=== PATIENT | female | born 1985 | race Caucasian/White ===

== ENCOUNTER 2016-08-16 22:54 | Emergency (ER) | payer MEDICAID ==
[~2016-08-16] VITALS: Ht 172.7 cm; Wt 62.0 kg
[2016-08-16] MEDS ORDERED: IBUPROFEN 600MG TABLET PO ONE (23:30)
[2016-08-16] MEDS ORDERED: SILVER SULFADIAZINE 1% CREAM 25GM TOP ONE (23:30)
[2016-08-16 23:50] VITALS: BP 123/75
[2016-08-17] MEDS ORDERED: ACETAMINOPHEN 500MG TABLET PO ONE (00:15)
== END 2016-08-17 01:20 | disposition home or self-care (01) ==
LOC: ER 22:55
DX: T23.001A Burn of unspecified degree of right hand, unspecified site, initial encounter (principal); T22.011A Burn of unspecified degree of right forearm, initial encounter; X12.XXXA Contact with other hot fluids, initial encounter; Y93.89 Activity, other specified; Y92.59 Other trade areas as the place of occurrence of the external cause; Y99.8 Other external cause status
CPT/HCPCS: 16020; 81025; 99284; Z7610

== ENCOUNTER 2016-08-20 12:42 | Emergency (ER) | payer MEDICAID ==
[~2016-08-20] VITALS: Ht 165.1 cm; Wt 53.0 kg
[2016-08-20] MEDS ORDERED: SILVER SULFADIAZINE 1% CREAM 25GM TOP ONE (16:00)
[2016-08-20 16:11] VITALS: BP 114/57
== END 2016-08-20 16:12 | disposition home or self-care (01) ==
LOC: ER 14:58
DX: T22.20XD Burn of second degree of shoulder and upper limb, except wrist and hand, unspecified site, subsequent encounter (principal); F12.10 Cannabis abuse, uncomplicated; X08.8XXD Exposure to other specified smoke, fire and flames, subsequent encounter
CPT/HCPCS: 99283; Z7610

== ENCOUNTER 2016-08-22 15:01 | Emergency (ER) | payer MEDICAID ==
[~2016-08-22] VITALS: Ht 165.1 cm; Wt 55.0 kg
[2016-08-22 15:28] VITALS: BP 116/61
== END 2016-08-22 17:10 | disposition home or self-care (01) ==
LOC: ER 17:03
DX: Z48.01 Encounter for change or removal of surgical wound dressing (principal); F12.10 Cannabis abuse, uncomplicated
CPT/HCPCS: 99281